=== PATIENT | female | born 1970 | race Caucasian/White ===

== ENCOUNTER 2017-12-27 20:04 | Emergency (ER) | payer OTHER ==
[~2017-12-27] VITALS: Ht 165.1 cm; Wt 65.3 kg
[~2017-12-27 20:04] MED LIST: NITROFURANTOIN100 MG PO
[2017-12-27] MEDS ORDERED: PHENAZOPYRIDIN100 M1 PO (20:18)
[2017-12-27 20:21] LABS: URINE BILIRUBIN NEGATIVE (Negative); URINE BLOOD NEGATIVE (Negative); URINE CLARITY CLEAR; URINE COLOR ORANGE; URINE GLUCOSE-RANDOM* NEGATIVE (Negative); URINE KETONES NEGATIVE (Negative); URINE LEUKOCYTES-REFLEX TRACE (Negative); URINE NITRITE-REFLEX POSITIVE (Negative); URINE PROTEIN (DIPSTICK) NEGATIVE (Negative); URINE SPECIFIC GRAVITY <= 1.005 (1.005-1.035)
[2017-12-27 20:30] LABS: AMORPHOUS URATES Few /LPF (None Seen); BACTERIA-REFLEX 1-9 Few /HPF (None Seen); CASTS None Seen /LPF (None Seen); URINE RBC None Seen /HPF (0-2); URINE WBC-REFLEX 0-5 Rare /HPF (0-5)
[2017-12-27 20:31] LABS: CRYSTALS None Seen /LPF (None Seen); SQUAMOUS 0-3 Few /LPF (0-3)
[2017-12-27] MEDS ORDERED: KEFLEX500 M1 PO (20:36)
[2017-12-27 20:43] VITALS: BP 128/76
== END 2017-12-27 20:43 | disposition home or self-care (01) ==
LOC: ER 20:04
PROVIDERS: Physician Assistant
DX: N39.0 Urinary tract infection, site not specified (principal); J45.909 Unspecified asthma, uncomplicated; Z90.49 Acquired absence of other specified parts of digestive tract

== ENCOUNTER 2018-07-13 01:06 | Emergency (ER) | payer OTHER ==
[~2018-07-13] VITALS: Ht 165.1 cm; Wt 65.8 kg
[~2018-07-13 01:06] MED LIST changes: +KEFLEX500 M1 PO; +PHENAZOPYRIDIN100 M1 PO
[2018-07-13 01:29] LABS: URINE BILIRUBIN NEGATIVE (Negative); URINE BLOOD 1+ (Negative); URINE CLARITY CLEAR; URINE COLOR YELLOW; URINE GLUCOSE-RANDOM* NEGATIVE (Negative); URINE KETONES NEGATIVE (Negative); URINE LEUKOCYTES-REFLEX 3+ (Negative); URINE NITRITE-REFLEX POSITIVE (Negative); URINE PROTEIN (DIPSTICK) NEGATIVE (Negative); URINE UROBILINOGEN 0.2 E.U./dl (0.2-1.0)
[2018-07-13 01:38] LABS: BACTERIA-REFLEX 1-9 Few /HPF (None Seen); CASTS None Seen /LPF (None Seen); CRYSTALS None Seen /LPF (None Seen); SQUAMOUS 0-3 Few /LPF (0-3); URINE RBC 0-2 Rare /HPF (0-2); URINE WBC-REFLEX >25 Many /HPF (0-5); WBC CLUMPS Moderate (None Seen)
[2018-07-13 01:39] LABS: ABSOLUTE NEUTROPHILS 9.1 thou/uL (1.4-8.2); BASOPHILS 0.4 % (0.0-2.0); HEMOGLOBIN 12.9 gm/dL (12.0-15.0); LYMPHOCYTES 11.5 % (24.0-44.0); MCH 29.3 pg (26.0-34.0); MCV 86.3 fL (80.0-100.0); MONOCYTES 4.2 % (1.0-8.0); PLATELET COUNT 241 thou/uL (150-400); POLYS 80.9 % (36.0-66.0); RDW 13.5 % (10.5-14.5); WBC 11.2 thou/uL (4.0-11.0)
[2018-07-13 01:45] LABS: CALCIUM 8.6 mg/dL (8.5-10.1); CREATININE 0.8 mg/dL (0.6-1.0); POTASSIUM 3.6 mmol/L (3.5-5.1)
[2018-07-13] MEDS ORDERED: KEFLEX500 M1 PO (02:15)
[2018-07-13 02:55] VITALS: BP 119/75
== END 2018-07-13 02:55 | disposition home or self-care (01) ==
LOC: ER 01:06
PROVIDERS: Student in an Organized Health Care Education/Training Program
DX: N30.20 Other chronic cystitis without hematuria (principal); J45.909 Unspecified asthma, uncomplicated; Z90.49 Acquired absence of other specified parts of digestive tract

== ENCOUNTER 2020-08-04 11:31 | Emergency (ER) | payer OTHER ==
[~2020-08-04] VITALS: Ht 165.1 cm; Wt 68.0 kg
[2020-08-04 13:40] LABS: ABSOLUTE NEUTROPHILS 5.1 thou/uL (1.4-8.2); BASOPHILS 0.3 % (0.0-2.0); EOSINOPHILS 1.6 % (0.0-3.0); HEMOGLOBIN 12.9 gm/dL (12.0-15.0); LYMPHOCYTES 16.7 % (24.0-44.0); MCH 29.8 pg (26.0-34.0); MCHC 33.9 g/dL (28.0-37.0); MCV 87.9 fL (80.0-100.0); MONOCYTES 7.8 % (1.0-8.0); PLATELET COUNT 283 thou/uL (150-400); POLYS 73.6 % (36.0-66.0); RBC 4.32 mil/uL (4.20-5.00); RDW 12.3 % (10.5-14.5); WBC 6.9 thou/uL (4.0-11.0)
[2020-08-04 13:52] LABS: CALCIUM 8.9 mg/dL (8.5-10.1); CREATININE 0.8 mg/dL (0.6-1.0); POTASSIUM 4.1 mmol/L (3.5-5.1)
[2020-08-04 13:58] LABS: TOTAL BILIRUBIN 0.4 mg/dL (0.2-1.0)
[2020-08-04] MEDS ORDERED: ZPAK PO (15:18)
[2020-08-04] MEDS ORDERED: PREDNISONE 20 M20 MG PO (15:18)
[2020-08-04] MEDS ORDERED: BUTALB-APAP-CA1 EACH PO (15:18)
[2020-08-04 16:24] VITALS: BP 135/85
== END 2020-08-04 16:15 | disposition home or self-care (01) ==
LOC: ER 11:31
PROVIDERS: Physician Assistant
DX: U07.1 COVID-19 (principal); J70.2 Acute drug-induced interstitial lung disorders; T36.8X5A Adverse effect of other systemic antibiotics, initial encounter; Y92.89 Other specified places as the place of occurrence of the external cause